=== PATIENT | male | born 1975 | race Two or more races ===

== ENCOUNTER 2025-02-10 19:31 | Inpatient (IN) | payer OTHER ==
[~2025-02-10] VITALS: Ht 170.2 cm; Wt 75.0 kg
[2025-02-10 21:29] LABS: BASOPHILS % (AUTO) 0.3 % (0.0-2.0); EOSINOPHILS % (AUTO) 0.7 % (1.0-6.0); HEMATOCRIT 42.5 % (41-53); HEMOGLOBIN 14.5 g/dL (13.5-17.5); LYMPHOCYTES # (AUTO) 1.5 K/uL (1.0-4.8); LYMPHOCYTES % (AUTO) 15.3 % (22.0-44.0); MEAN CORPUSCULAR HEMOGLOBIN 28.1 pg (26.0-34.0); MEAN CORPUSCULAR HGB CONC 34.3 G/dL (31.0-37.0); MEAN CORPUSCULAR VOLUME 82 fL (80-100); MONOCYTES # (AUTO) 0.6 K/uL (0.1-1.0); MONOCYTES % (AUTO) 5.7 % (2.0-9.0); NEUTROPHILS # (AUTO) 7.5 K/uL (1.8-7.7); PLATELET COUNT (AUTO) 264 K/uL (150-450); RED BLOOD CELL COUNT(AUTO) 5.17 MIL/uL (4.50-5.90); RED CELL DISTRIBUTION WIDTH 13.3 % (11.5-14.5); WHITE BLOOD COUNT (AUTO) 9.7 K/uL (4.5-11.0)
[2025-02-10 21:38] LABS: ANION GAP 8 mmol/L (8-16); CALCIUM, TOTAL 9.5 mg/dL (8.8-10.5); CARBON DIOXIDE 28 mmol/L (22-29); CHLORIDE 99 mmol/L (98-107); GLOMERULAR FILTR. RATE CALC > 60 mL/min (>60); GLUCOSE,RANDOM 283 mg/dL (70-110); SODIUM SERUM 135 mmol/L (136-145); UREA NITROGEN, BLOOD 12 mg/dL (7-18)
[2025-02-10 21:42] LABS: ALBUMIN 3.4 g/dL (3.4-5.0); BILIRUBIN,DIRECT 0.2 mg/dL (0.00-0.20); BILIRUBIN,TOTAL 0.7 mg/dL (0.1-1.0)
[2025-02-10] MEDS ORDERED: 0.9% SODIUM CHLORIDE 10 ML SYRINGE IVP ONE (22:13)
[2025-02-10] MEDS ORDERED: SODIUM CHLORIDE 0.9% 100 ML ONE (22:13)
[2025-02-10] MEDS: HYDROCODONE/ACETAMINOPHEN 5-325 MG TABLET PO ONE (22:13)
[2025-02-10] MEDS ORDERED: IOHEXOL 350 MG/ML 100 ML VIAL ONE (22:13)
[2025-02-10] MEDS: MORPHINE SULFATE 2 MG/ML SYRINGE IVP ONE (22:15)
[2025-02-10] MEDS: SODIUM CHLORIDE 0.9% 1,000 ML IV ONE (22:54)
[2025-02-10] MEDS: CLINDAMYCIN 600 MG/D5% WATER 50 ML IV ONE (22:55)
[2025-02-10] MEDS: VANCOMYCIN 1.25 GM/WATER(PEG) 250 ML IV ONE (22:55)
[2025-02-11] MEDS ORDERED: ONDANSETRON HCL 4 MG/2 ML VIAL IVP PRN
[2025-02-11] MEDS ORDERED: DEXTROSE 50%-WATER 25 GM/50 ML SYRINGE IVP PRN ×2 (00:15→10:30)
[2025-02-11] MEDS: HEPARIN SODIUM,PORCINE 5,000 UNITS/ML VIAL SQ SCH (01:29)
[2025-02-11] MEDS: INSULIN GLARGINE,HUM.REC.ANLOG 100 UNITS/ML SQ SCH (01:30)
[2025-02-11] MEDS: PIPERACILLIN/TAZO 3.375 GM/D5W 50 ML IV SCH (03:42)
[2025-02-11 05:10] VITALS: BP 118/71; PULSE 76; RESP 19; TEMP 97.7; O2SAT 95
[2025-02-11] MEDS: ACETAMINOPHEN 325 MG TABLET PO PRN (05:58)
[2025-02-11] MEDS: INSULIN LISPRO 100 UNITS/ML SQ PRN ×2 (06:03→11:35)
[2025-02-11 07:42] VITALS: BP 116/67; PULSE 79; RESP 18; TEMP 97.7; O2SAT 99
[2025-02-11] MEDS ORDERED: SODIUM CHLORIDE 0.9% 500 ML IV ONE (09:08)
[2025-02-11] MEDS: VANCOMYCIN 1GM/WATER(PEG/NADA) 200 ML IV SCH (09:12)
[2025-02-11] MEDS: DEXAMETHASONE SOD PHOS 4 MG/ML VIAL IVP SCH (09:55)
[2025-02-11 11:00] LABS: ANION GAP 8 mmol/L (8-16); CALCIUM, TOTAL 8.3 mg/dL (8.8-10.5); CARBON DIOXIDE 29 mmol/L (22-29); CHLORIDE 101 mmol/L (98-107); CREATININE 0.79 mg/dL (0.60-1.30); GLOMERULAR FILTR. RATE CALC > 60 mL/min (>60); GLUCOSE,RANDOM 245 mg/dL (70-110); POTASSIUM 3.6 mmol/L (3.5-5.1); SODIUM SERUM 137 mmol/L (136-145); UREA NITROGEN, BLOOD 12 mg/dL (7-18)
[2025-02-11 18:05] LABS: GLUCOMETER DEV NAME(LOC) 6S.1D; GLUCOSE,POINT OF CARE 151 MG/DL (70-110)
[2025-02-11 19:32] VITALS: BP 120/73; PULSE 82; RESP 18; TEMP 98.8; O2SAT 96
[2025-02-11 21:15] LABS: GLUCOMETER DEV NAME(LOC) 6N.2B; GLUCOSE,POINT OF CARE 267 MG/DL (70-110)
[2025-02-11 21:15] LABS: GLUCOMETER DEV NAME(LOC) 6N.2B; GLUCOSE,POINT OF CARE 201 MG/DL (70-110)
[2025-02-11 21:20] LABS: GLUCOMETER DEV NAME(LOC) 6S.2; GLUCOSE,POINT OF CARE 306 MG/DL (70-110)
[2025-02-12 03:21] LABS: GLUCOMETER DEV NAME(LOC) 6S.1D; GLUCOSE,POINT OF CARE 298 MG/DL (70-110)
[2025-02-12 04:47] VITALS: BP 105/73; PULSE 70; RESP 18; TEMP 98.5; O2SAT 97
[2025-02-12 07:59] LABS: BASOPHILS % (AUTO) 0.1 % (0.0-2.0); EOSINOPHILS % (AUTO) 0.3 % (1.0-6.0); HEMATOCRIT 39.1 % (41-53); HEMOGLOBIN 13.4 g/dL (13.5-17.5); LYMPHOCYTES # (AUTO) 2.2 K/uL (1.0-4.8); LYMPHOCYTES % (AUTO) 27.6 % (22.0-44.0); MEAN CORPUSCULAR HEMOGLOBIN 27.7 pg (26.0-34.0); MEAN CORPUSCULAR HGB CONC 34.2 G/dL (31.0-37.0); MEAN CORPUSCULAR VOLUME 81 fL (80-100); MONOCYTES # (AUTO) 0.5 K/uL (0.1-1.0); MONOCYTES % (AUTO) 6.1 % (2.0-9.0); NEUTROPHILS # (AUTO) 5.2 K/uL (1.8-7.7); NEUTROPHILS % (AUTO) 65.9 % (40.0-70.0); PLATELET COUNT (AUTO) 288 K/uL (150-450); RED BLOOD CELL COUNT(AUTO) 4.82 MIL/uL (4.50-5.90); RED CELL DISTRIBUTION WIDTH 13.6 % (11.5-14.5); WHITE BLOOD COUNT (AUTO) 7.9 K/uL (4.5-11.0)
[2025-02-12 08:10] LABS: ANION GAP 8 mmol/L (8-16); CALCIUM, TOTAL 9.1 mg/dL (8.8-10.5); CARBON DIOXIDE 28 mmol/L (22-29); CHLORIDE 101 mmol/L (98-107); CREATININE 0.72 mg/dL (0.60-1.30); GLOMERULAR FILTR. RATE CALC > 60 mL/min (>60); GLUCOSE,RANDOM 106 mg/dL (70-110); POTASSIUM 3.4 mmol/L (3.5-5.1); SODIUM SERUM 137 mmol/L (136-145); UREA NITROGEN, BLOOD 17 mg/dL (7-18)
[2025-02-12 08:37] VITALS: BP 108/73; PULSE 74; RESP 20; TEMP 98.7; O2SAT 96
[2025-02-12] MEDS ORDERED: POTASSIUM CHL 10 MEQ/WATER 50 ML IV PRN (10:30)
[2025-02-12 10:35] LABS: GLUCOMETER DEV NAME(LOC) 6S.1D; GLUCOSE,POINT OF CARE 145 MG/DL (70-110)
[2025-02-12] MEDS: POTASSIUM CHLORIDE 20 MEQ ER TABLET PO PRN (10:56)
[2025-02-12 17:25] LABS: GLUCOMETER DEV NAME(LOC) 6S.1D; GLUCOSE,POINT OF CARE 204 MG/DL (70-110)
[2025-02-12] MEDS: MetFORMIN HCL 500 MG TABLET PO SCH (17:25)
[2025-02-12 17:36] LABS: GLUCOMETER DEV NAME(LOC) 6S.2; GLUCOSE,POINT OF CARE 242 MG/DL (70-110)
[2025-02-12 19:27] VITALS: BP 112/74; PULSE 84; RESP 18; TEMP 98.2; O2SAT 96
[2025-02-13 06:00] VITALS: BP 119/83; PULSE 76; RESP 18; TEMP 98.2; O2SAT 97
[2025-02-13 11:03] VITALS: BP 106/79; PULSE 75; RESP 18; TEMP 98.2; O2SAT 97
[2025-02-13 16:55] LABS: GLUCOMETER DEV NAME(LOC) 6N.2B; GLUCOSE,POINT OF CARE 264 MG/DL (70-110)
[2025-02-13 20:57] VITALS: BP 110/68; PULSE 77; RESP 18; TEMP 98.4; O2SAT 98
[2025-02-13 23:31] LABS: GLUCOMETER DEV NAME(LOC) 6S.1D; GLUCOSE,POINT OF CARE 195 MG/DL (70-110)
[2025-02-13 23:31] LABS: GLUCOMETER DEV NAME(LOC) 6N.2B; GLUCOSE,POINT OF CARE 341 MG/DL (70-110)
[2025-02-13 23:35] LABS: GLUCOMETER DEV NAME(LOC) 6S.2; GLUCOSE,POINT OF CARE 222 MG/DL (70-110)
[2025-02-13 23:36] LABS: GLUCOMETER DEV NAME(LOC) 6S.2; GLUCOSE,POINT OF CARE 130 MG/DL (70-110)
[2025-02-14 05:37] VITALS: BP 99/66; PULSE 66; RESP 18; TEMP 97.9; O2SAT 96
[2025-02-14 08:15] LABS: ANION GAP 7 mmol/L (8-16); CARBON DIOXIDE 27 mmol/L (22-29); CHLORIDE 102 mmol/L (98-107); GLOMERULAR FILTR. RATE CALC > 60 mL/min (>60); GLUCOSE,RANDOM 113 mg/dL (70-110); POTASSIUM 3.9 mmol/L (3.5-5.1); SODIUM SERUM 136 mmol/L (136-145); UREA NITROGEN, BLOOD 16 mg/dL (7-18); VANCOMYCIN,RANDOM 14.7 mcg/mL (25.0-50.0)
[2025-02-14 08:44] VITALS: BP 115/82; PULSE 72; RESP 18; TEMP 97.9; O2SAT 99
[2025-02-14 11:26] LABS: GLUCOMETER DEV NAME(LOC) 6S.1D; GLUCOSE,POINT OF CARE 182 MG/DL (70-110)
[2025-02-14] MEDS ORDERED: METF-1211 PO (12:18)
[2025-02-14] MEDS ORDERED: SULF-261 PO (12:19)
[2025-02-14] MEDS ORDERED: ACET-2247 PO (12:20)
[2025-02-14] MEDS ORDERED: INSU100V SQ (12:21)
[2025-02-14 13:51] LABS: GLUCOMETER DEV NAME(LOC) 6N.2B; GLUCOSE,POINT OF CARE 170 MG/DL (70-110)
[2025-02-14] MEDS: MetFORMIN HCL 500 MG TABLET PO SCH (17:40)
[2025-02-14 19:31] LABS: GLUCOMETER DEV NAME(LOC) 6S.1D; GLUCOSE,POINT OF CARE 154 MG/DL (70-110)
[2025-02-14] MEDS ORDERED: SULFAMETHOX/TRIMETH DS 800-160 MG/TABLET PO SCH (21:00)
== END 2025-02-14 19:45 | DRG 603 ==
LOC: EMS 19:31 → EDH 02-11 01:37 → UNDOADMIN 02-11 01:37 → 6N 02-11 05:10
PROVIDERS: ADMIT Internal Medicine; ATTEND Internal Medicine
DX: L03.211 Cellulitis of face (principal); E11.65 Type 2 diabetes mellitus with hyperglycemia; D64.9 Anemia, unspecified
CPT/HCPCS: 70487; 80048; 80076; 80202; 82962; 83036; 83735; 84132; 85025; 96365; 96368; 99285; J1100; J1644; J1815; J2405; J2543; J3490; J7030; J7040; J7050